=== PATIENT | female | born 1990 | race African-American/Black ===

== ENCOUNTER 2017-02-18 07:22 | Emergency (ER) | payer OTHER ==
[~2017-02-18] VITALS: Ht 162.6 cm; Wt 77.1 kg
[2017-02-18] MEDS ORDERED: IV NORMAL SALINE 1,000ML 1,000 ML IV SCH (07:49)
[2017-02-18 08:14] LABS: BASO # 0.1 x10^3/uL (0.0-0.2); BASO % 0 % (0-3); EOS # 0.1 x10^3/uL (0.0-0.7); EOS % 1 % (0-3); HEMATOCRIT 34.1 % (36.0-47.0); LYMPH # 2.8 x10^3/uL (1.0-4.8); LYMPH % 17 % (24-48); MEAN CORPUSCULAR HEMOGLOBIN 26 pg (25-35); MEAN CORPUSCULAR HGB CONC 32 g/dL (31-37); MEAN CORPUSCULAR VOLUME 80 fL (79-100); MONO # 1.3 x10^3/uL (0.0-1.1); MONO % 8 % (0-9); NEUT # 12.4 x10^3uL (1.8-7.7); NEUT % 75 % (31-73); PLATELET COUNT 371 x10^3/uL (140-400); RED BLOOD COUNT 4.27 x10^6/uL (3.50-5.40); RED CELL DISTRIBUTION WIDTH 20.5 % (11.5-14.5); WHITE BLOOD COUNT 16.6 x10^3/uL (4.0-11.0)
[2017-02-18 08:25] LABS: ALBUMIN 3.4 g/dL (3.4-5.0); ALBUMIN/GLOBULIN RATIO 0.9 (1.0-1.7); CALCIUM 8.7 mg/dL (8.5-10.1); CREATININE 0.7 mg/dL (0.6-1.0); GFR 121.5; POTASSIUM 3.3 mmol/L (3.5-5.1); TOTAL BILIRUBIN 0.1 mg/dL (0.2-1.0); TOTAL PROTEIN 7.2 g/dL (6.4-8.2)
[2017-02-18] MEDS ORDERED: ONDANSETRON PF 4 MG/2 ML VIAL. IV ONE (08:30)
[2017-02-18 08:52] LABS: % LYMPHS 17 % (24-48); % MONOS 13 % (0-10); % SEGS 70 % (35-66); PLT ESTIMATE ADEQUATE (ADEQUATE)
[2017-02-18 08:53] LABS: ANISOCYTOSIS SLIGHT; OVALOCYTES OCC
--- NOTE | 2017-02-18 08:58 | PHYS DOC ---
Past History Past Medical History: Other Past Surgical History: No Surgical History Smoking: Greater than 1 pack/day Alcohol Use: Occasionally Drug Use: None Adult General Chief Complaint Chief Complaint: NAUSEA/VOMITING/DIARRHEA HPI HPI Patient is a 26 year old F who presents with nausea/vomiting/diarrhea over the past 2-3 days. She also describes intermittent short-lived sharp generalized abdominal pain that seems to be associated with vomiting. She denies any other associated symptoms at this time. She denies any other exacerbating or relieving factors. Review of Systems Review of Systems Constitutional: Denies fever or chills [] Eyes: Denies change in visual acuity, redness, or eye pain [] HENT: Denies nasal congestion or sore throat [] Respiratory: Denies cough or shortness of breath [] Cardiovascular: No additional information not addressed in HPI [] GI: Negative except history of present illness : Denies dysuria or hematuria [] Musculoskeletal: Denies back pain or joint pain [] Integument: Denies rash or skin lesions [] Neurologic: Denies headache, focal weakness or sensory changes [] Endocrine: Denies polyuria or polydipsia [] All other systems were reviewed and found to be within normal limits, except as documented in this note. Family History Family History No pertinent family medical history was reported Current Medications Current Medications Current medications were reviewed Current Medications Medications (Trade) Dose Ordered Sig/Pedro Start Time Stop Time Status Last Admin Dose Admin Ondansetron HCl (Zofran) 4 mg 1X ONCE 02/18/17 08:30 02/18/17 08:31 DC 02/18/17 08:22 4 MG Sodium Chloride 1,000 ml @ 1,000 mls/hr Q1H 02/18/17 07:49 02/18/17 08:48 02/18/17 08:22 1,000 MLS/HR Allergies Allergies Allergies Coded Allergies Type Severity Reaction Last Updated Verified No Known Drug Allergies 02/18/17 No Physical Exam Physical Exam Constitutional: Well developed, well nourished, no acute distress, non-toxic appearance. [] HENT: Normocephalic, atraumatic, Eyes: EOMI, conjunctiva normal, no discharge. [] Neck: Normal range of motion, no tenderness, supple, no stridor. [] Cardiovascular:Heart rate regular rhythm, Lungs & Thorax: Bilateral breath sounds clear to auscultation [] Abdomen: Bowel sounds normal, soft, no masses, no pulsatile masses. [] Mild generalized discomfort noted Skin: Warm, dry, no erythema, no rash. [] Back: No tenderness, no CVA tenderness. [] Extremities: No tenderness, no cyanosis, no clubbing, ROM intact, no edema. [] Neurologic: Alert and oriented X 3, normal motor function, normal sensory function, no focal deficits noted. [] Psychologic: Affect normal, judgement normal, mood normal. [] Current Patient Data Vital Signs Vital Signs Date Time Temp Pulse Resp B/P (MAP) Pulse Ox O2 Delivery O2 Flow Rate FiO2 02/18/17 07:58 98.3 93 18 100 Room Air Lab Results Laboratory Tests Test 02/18/17 08:00 White Blood Count 16.6 x10^3/uL (4.0-11.0) H Red Blood Count 4.27 x10^6/uL (3.50-5.40) Hemoglobin 11.0 g/dL (12.0-15.5) L Hematocrit 34.1 % (36.0-47.0) L Mean Corpuscular Volume 80 fL (79-100) Mean Corpuscular Hemoglobin 26 pg (25-35) Mean Corpuscular Hemoglobin Concent 32 g/dL (31-37) Red Cell Distribution Width 20.5 % (11.5-14.5) H Platelet Count 371 x10^3/uL (140-400) Neutrophils (%) (Auto) 75 % (31-73) H Lymphocytes (%) (Auto) 17 % (24-48) L Monocytes (%) (Auto) 8 % (0-9) Eosinophils (%) (Auto) 1 % (0-3) Basophils (%) (Auto) 0 % (0-3) Neutrophils # (Auto) 12.4 x10^3uL (1.8-7.7) H Lymphocytes # (Auto) 2.8 x10^3/uL (1.0-4.8) Monocytes # (Auto) 1.3 x10^3/uL (0.0-1.1) H Eosinophils # (Auto) 0.1 x10^3/uL (0.0-0.7) Basophils # (Auto) 0.1 x10^3/uL (0.0-0.2) Platelet Estimate Pending Sodium Level 141 mmol/L (136-145) Potassium Level 3.3 mmol/L (3.5-5.1) L Chloride Level 104 mmol/L (98-107) Carbon Dioxide Level 27 mmol/L (21-32) Anion Gap 10 (6-14) Blood Urea Nitrogen 9 mg/dL (7-20) Creatinine 0.7 mg/dL (0.6-1.0) Estimated GFR (Cockcroft-Gault) 121.5 BUN/Creatinine Ratio 13 (6-20) Glucose Level 98 mg/dL (70-99) Calcium Level 8.7 mg/dL (8.5-10.1) Total Bilirubin 0.1 mg/dL (0.2-1.0) L Aspartate Amino Transferase (AST) 15 U/L (15-37) Alanine Aminotransferase (ALT) 19 U/L (14-59) Alkaline Phosphatase 75 U/L (46-116) Total Protein 7.2 g/dL (6.4-8.2) Albumin 3.4 g/dL (3.4-5.0) Albumin/Globulin Ratio 0.9 (1.0-1.7) L Lipase 144 U/L (73-393) No obvious signs of infection. WBC elevation is likely related to . She states that she has had hemorrhoids and is very confident that she is not having vaginal bleeding. She does have a history of receiving Rhogam during previous . More than 20 minutes was spent describing the risk of vaginal bleeding without Rhogam administration. She expressed understanding that without Rhogam in the presence of vaginal bleeding miscarriages likely as well as difficulty conceiving thereafter. Rhogam was declined EKG EKG [] Radiology/Procedures Radiology/Procedures US OB Impressions: IUP at 7wga Course & Med Decision Making Course & Med Decision Making Pertinent Labs and Imaging studies reviewed. (See chart for details) [] Dragon Disclaimer Dragon Disclaimer This electronic medical record was generated, in whole or in part, using a voice recognition dictation system. Departure Departure: Impression: Primary Impression: Gastroenteritis Additional Impression: Intrauterine Disposition: HOME, SELF-CARE Condition: STABLE Referrals: PCP,NO (PCP) Patient Instructions: ABCs of , Viral Gastroenteritis Additional Instructions: Katie was seen in the emergency department for nausea and vomiting. No emergency medical condition was found on history or physical exam. She was found to be in the first trimester of her . She also had symptoms of gastroenteritis versus nausea and vomiting with . She was given a prescription for nausea medication. She is advised follow-up with her primary care doctor/[facility] as soon as possible for further management. She was also advised to start taking a vitamin. Scripts Pyridoxine Hcl (PYRIDOXINE HCL) 25 Mg Tablet 25 MG PO TID Y for NAUSEA for 7 Days, #21 TAB Prov: KYLER SHIPLEY MD 02/18/17 Problem Qualifiers KYLER SHIPLEY MD Feb 18, 2017 08:58
[2017-02-18 09:06] LABS: BACTERIA,URINE 0 /HPF (0-FEW); BILIRUBIN,URINE NEG (NEG); CLARITY,URINE CLEAR; COLOR,URINE YELLOW; GLUCOSE,URINE NEG (NEG); NITRITE,URINE NEG (NEG); RBC,URINE RARE /HPF (0-2); SQUAMOUS EPITHELIAL CELL,UR OCC /LPF; UROBILINOGEN,URINE 0.2 mg/dL (0.2 mg/dL); WBC,URINE 0 /HPF (0-4)
--- NOTE | 2017-02-18 09:54 | RAD ---
Ultrasound pelvis Indication abdominal pain, vomiting. Beta-hCG 67,000. Technique: Grayscale, color Doppler and spectral waveform images of the pelvis obtained. Comparison: None Findings: The uterus measures 10.0 x 7.0 x 7.0 cm (longitudinal, AP, transverse). Single intrauterine gestation sac is noted with pole with crown to rump length measuring 0.91 cm corresponding to gestation age of 6 weeks 6 days. Cardiac activity is demonstrated at the rate of 141 bpm. The gestation sac mean diameter measures 2.4 cm corresponding to gestation age of 7 weeks 3 days. The left ovary measures 3.4 x 2.3 x 1.6 cm with a 1.1 cm simple cyst/follicle. The left ovary demonstrates evidence of blood flow. The right ovary measures 2.1 x 1.8 x 0.9 cm. Cervix within normal limits. Impression: Single viable intrauterine with estimated gestation age of 7 weeks 1 day and due date of 10/06/2017.
[2017-02-18] MEDS ORDERED: PYRI25TA3 PO (10:02)
[2017-02-18 10:05] VITALS: BP 124/61
== END 2017-02-18 10:09 | disposition home or self-care (01) ==
LOC: ER 07:22
DX: K52.9 Noninfective gastroenteritis and colitis, unspecified (principal); Z33.1 Pregnant state, incidental; F17.200 Nicotine dependence, unspecified, uncomplicated
CPT/HCPCS: 36415; 76801; 76817; 80053; 81001; 81025; 83690; 84702; 85007; 85025; 96361; 96374; 99285; J2405; J7030

== ENCOUNTER 2017-08-18 18:00 | Emergency (ER) | payer OTHER ==
[~2017-08-18 18:00] MED LIST: PYRI25TA3 PO
--- NOTE | 2017-08-18 21:25 | ED.ADGEN ---
Past History Past Medical History: Other Past Surgical History: No Surgical History Smoking: Greater than 1 pack/day Alcohol Use: Occasionally Drug Use: None Adult General Chief Complaint Chief Complaint ". ... I am having some cramping.. and pain.. I am about 32 ... this will be 5th.. I ve had four births. one set of twins.. one miscarry... not had any care...." [facility] HPI Patient is a 27 year old female who presents with above hx and complaints of abdomen cramping and estimated 32 weeks gravid. ( See Hand written chart - computer down.) Patient has had estimated 5 pregnancies. One was twins. She had 1 miscarriage. No history given of STDs. No history of trauma. No history of synovial contacts. No history immunosuppression. Review of Systems Review of Systems Constitutional: Denies fever or chills [] Eyes: Denies change in visual acuity, redness, or eye pain [] HENT: Denies nasal congestion or sore throat [] Respiratory: Denies cough or shortness of breath [] Cardiovascular: No additional information not addressed in HPI [] GI: Complaints of abdominal pain, nausea,. Denies vomiting, bloody stools or diarrhea [] Vaginal spotting : Denies dysuria or hematuria [] Musculoskeletal: Denies back pain or joint pain [] Integument: Denies rash or skin lesions [] Neurologic: Denies headache, focal weakness or sensory changes [] Endocrine: Denies polyuria or polydipsia [] All other systems were reviewed and found to be within normal limits, except as documented in this note. Family History Family History Non-contributory Current Medications Current Medications Current Medications Medications (Trade) Dose Ordered Sig/Pedro Start Time Stop Time Status Last Admin Dose Admin Ceftriaxone Sodium 1 gm/ Sodium Chloride 50 ml @ 100 mls/hr 1X ONCE 08/19/17 01:00 08/19/17 01:29 UNV Ceftriaxone Sodium (Rocephin) 1 gm ONCE ONCE 08/19/17 01:15 08/19/17 01:16 SC See nursing for home meds Allergies Allergies Allergies Coded Allergies Type Severity Reaction Last Updated Verified No Known Drug Allergies 02/18/17 No Physical Exam Physical Exam Constitutional: , moderately acute distress, non-toxic appearance. [] HENT: Normocephalic, atraumatic, bilateral external ears normal, oropharynx moist, no oral exudates, nose normal. [] Eyes: PERRLA, EOMI, conjunctiva normal, no discharge. [] Neck: Normal range of motion, no tenderness, supple, no stridor. [] Cardiovascular:Heart rate regular rhythm, no murmur [] Lungs & Thorax: Bilateral breath sounds equal apex with scattered wheezes . [] Abdomen: Bowel sounds normal, soft, no tenderness, no masses, no pulsatile masses. Vaginal exam shows discharged mild cervical motion tenderness. Small amount of spotting at Os Skin: Warm, dry, no erythema, no rash. [] Back: No tenderness, no CVA tenderness. [] Extremities: No tenderness, no cyanosis, no clubbing, ROM intact, no edema. [] No psoas or obturator. Neurologic: Alert and oriented X 3, normal motor function, normal sensory function, no focal deficits noted. [] Psychologic: Affect anxious judgement normal, mood normal. [] Current Patient Data Lab Results Laboratory Tests Test 08/18/17 18:45 White Blood Count 14.3 x10^3/uL (4.0-11.0) H Red Blood Count 3.70 x10^6/uL (3.50-5.40) Hemoglobin 8.7 g/dL (12.0-15.5) L Hematocrit 28.4 % (36.0-47.0) L Mean Corpuscular Volume 77 fL (79-100) L Mean Corpuscular Hemoglobin 24 pg (25-35) L Mean Corpuscular Hemoglobin Concent 31 g/dL (31-37) Red Cell Distribution Width 17.8 % (11.5-14.5) H Platelet Count 178 x10^3/uL (140-400) Neutrophils (%) (Auto) 73 % (31-73) Lymphocytes (%) (Auto) 18 % (24-48) L Monocytes (%) (Auto) 8 % (0-9) Eosinophils (%) (Auto) 1 % (0-3) Basophils (%) (Auto) 0 % (0-3) Neutrophils # (Auto) 10.5 x10^3uL (1.8-7.7) H Lymphocytes # (Auto) 2.5 x10^3/uL (1.0-4.8) Monocytes # (Auto) 1.1 x10^3/uL (0.0-1.1) Eosinophils # (Auto) 0.1 x10^3/uL (0.0-0.7) Basophils # (Auto) 0.0 x10^3/uL (0.0-0.2) Prothrombin Time < 9.3 SEC (9.4-11.4) L Prothrombin Time INR 0.9 (0.9-1.1) Maternal Serum HCG Beta Subunit 65978 mIU/mL (0-6) H Sodium Level 140 mmol/L (136-145) Potassium Level 3.7 mmol/L (3.5-5.1) Chloride Level 105 mmol/L (98-107) Carbon Dioxide Level 25 mmol/L (21-32) Anion Gap 10 (6-14) Blood Urea Nitrogen 2 mg/dL (7-20) L Creatinine 0.5 mg/dL (0.6-1.0) L Estimated GFR (Cockcroft-Gault) 177.8 BUN/Creatinine Ratio 4 (6-20) L Glucose Level 95 mg/dL (70-99) Calcium Level 9.0 mg/dL (8.5-10.1) Total Bilirubin 0.3 mg/dL (0.2-1.0) Aspartate Amino Transferase (AST) 34 U/L (15-37) Alanine Aminotransferase (ALT) 16 U/L (14-59) Alkaline Phosphatase 98 U/L (46-116) Total Protein 6.1 g/dL (6.4-8.2) L Albumin 2.1 g/dL (3.4-5.0) L Albumin/Globulin Ratio 0.5 (1.0-1.7) L Lipase 144 U/L (73-393) Microbiology 08/18/17 Wet Prep - Final, Complete Laboratory Tests Test 08/18/17 18:45 White Blood Count 14.3 x10^3/uL (4.0-11.0) H Red Blood Count 3.70 x10^6/uL (3.50-5.40) Hemoglobin 8.7 g/dL (12.0-15.5) L Hematocrit 28.4 % (36.0-47.0) L Mean Corpuscular Volume 77 fL (79-100) L Mean Corpuscular Hemoglobin 24 pg (25-35) L Mean Corpuscular Hemoglobin Concent 31 g/dL (31-37) Red Cell Distribution Width 17.8 % (11.5-14.5) H Platelet Count 178 x10^3/uL (140-400) Neutrophils (%) (Auto) 73 % (31-73) Lymphocytes (%) (Auto) 18 % (24-48) L Monocytes (%) (Auto) 8 % (0-9) Eosinophils (%) (Auto) 1 % (0-3) Basophils (%) (Auto) 0 % (0-3) Neutrophils # (Auto) 10.5 x10^3uL (1.8-7.7) H Lymphocytes # (Auto) 2.5 x10^3/uL (1.0-4.8) Monocytes # (Auto) 1.1 x10^3/uL (0.0-1.1) Eosinophils # (Auto) 0.1 x10^3/uL (0.0-0.7) Basophils # (Auto) 0.0 x10^3/uL (0.0-0.2) Prothrombin Time < 9.3 SEC (9.4-11.4) L Prothrombin Time INR 0.9 (0.9-1.1) Maternal Serum HCG Beta Subunit 41936 mIU/mL (0-6) H Sodium Level 140 mmol/L (136-145) Potassium Level 3.7 mmol/L (3.5-5.1) Chloride Level 105 mmol/L (98-107) Carbon Dioxide Level 25 mmol/L (21-32) Anion Gap 10 (6-14) Blood Urea Nitrogen 2 mg/dL (7-20) L Creatinine 0.5 mg/dL (0.6-1.0) L Estimated GFR (Cockcroft-Gault) 177.8 BUN/Creatinine Ratio 4 (6-20) L Glucose Level 95 mg/dL (70-99) Calcium Level 9.0 mg/dL (8.5-10.1) Total Bilirubin 0.3 mg/dL (0.2-1.0) Aspartate Amino Transferase (AST) 34 U/L (15-37) Alanine Aminotransferase (ALT) 16 U/L (14-59) Alkaline Phosphatase 98 U/L (46-116) Total Protein 6.1 g/dL (6.4-8.2) L Albumin 2.1 g/dL (3.4-5.0) L Albumin/Globulin Ratio 0.5 (1.0-1.7) L Lipase 144 U/L (73-393) Microbiology 08/18/17 Wet Prep - Final, Complete EKG EKG [] Radiology/Procedures Radiology/Procedures Ultrasound shows intrauterine estimated 32 weeks. heart rate at 149.[] Course & Med Decision Making Course & Med Decision Making Pertinent Labs and Imaging studies reviewed. (See chart for details). Pt. to follow-up cultures with [employer]. Patient continue pad counts. Patient take vitamins. Patient to stop smoking. Note patient was to receive Rhogram here in the emergency department but left at the time Dispense to the ER. [] Final Impression Final Impression 1. Abdomen Pain 2. Gravid-[]32 weeks 3. Leukocytosis 4. Anemia 5. Beta hCG= 31,395 6. Blood type A negative 7. Threaten 8. Tobacco Use Dragon Disclaimer Dragon Disclaimer This electronic medical record was generated, in whole or in part, using a voice recognition dictation system. EMILY CASTRO MD Aug 18, 2017 21:25
[2017-08-18 22:44] LABS: BASO % 0 % (0-3); EOS # 0.1 x10^3/uL (0.0-0.7); EOS % 1 % (0-3); HEMATOCRIT 28.4 % (36.0-47.0); HEMOGLOBIN 8.7 g/dL (12.0-15.5); LYMPH # 2.5 x10^3/uL (1.0-4.8); LYMPH % 18 % (24-48); MEAN CORPUSCULAR HEMOGLOBIN 24 pg (25-35); MEAN CORPUSCULAR HGB CONC 31 g/dL (31-37); MEAN CORPUSCULAR VOLUME 77 fL (79-100); MONO # 1.1 x10^3/uL (0.0-1.1); MONO % 8 % (0-9); NEUT # 10.5 x10^3uL (1.8-7.7); NEUT % 73 % (31-73); PLATELET COUNT 178 x10^3/uL (140-400); RED CELL DISTRIBUTION WIDTH 17.8 % (11.5-14.5); WHITE BLOOD COUNT 14.3 x10^3/uL (4.0-11.0)
[2017-08-18 22:51] LABS: ALBUMIN 2.1 g/dL (3.4-5.0); ALBUMIN/GLOBULIN RATIO 0.5 (1.0-1.7); CREATININE 0.5 mg/dL (0.6-1.0); GFR 177.8; POTASSIUM 3.7 mmol/L (3.5-5.1); TOTAL BILIRUBIN 0.3 mg/dL (0.2-1.0); TOTAL PROTEIN 6.1 g/dL (6.4-8.2)
--- NOTE | 2017-08-18 23:02 | RAD ---
Clinical Indication: No care. Low pelvic pain for 2 days. Technique: Study is dated August 18, 2017. No comparison study is available. Transabdominal imaging was performed. Findings: There is a single intrauterine gestation in cephalic presentation. The placenta is posterior and fundal in location without evidence of placental previa. Cervical region is not well evaluated. ALDEN measured 9.5 cm. This value is within normal limits. Biometrical data is as follows: BPD = 7.98 cm, with a corresponding gestational age of 32 weeks 0 days. HC = 28.33 cm, with a corresponding gestational age of 31 weeks 1 days. AC = 28.47 cm, with a corresponding gestational age of 32 weeks 3 days. FL = 6.34 cm, with a corresponding gestational age of 32 weeks 5 days. Ratio of head circumference to abdominal circumference is 1.0. Cephalic index is 83 percent. Overall, the estimated sonographic gestational age is 32 weeks 1 day for an estimated date of delivery of October 12, 2017. YINKA by LMP is October 06, 2017. Estimated weight is 1964 g, 37th percentile. survey was performed. A four chamber heart is identified with positive cardiac activity. The estimated heart rate is 149 beats per minute. There is a three-vessel cord with cord insertion visualized. stomach and urinary bladder are identified. Both kidneys are seen. Spine is grossly unremarkable. Limited intracranial evaluation is unremarkable. Maternal ovaries are not visualized. IMPRESSION: Single intrauterine gestation with estimated sonographic gestational age of 32 weeks 1 day and heart tones of 149 bpm. Electronically signed by: Romulo Coley MD (08/18/2017 10:58 PM) [facility]
[2017-08-19] MEDS ORDERED: CEPH-264 PO (01:05)
[2017-08-19] MEDS ORDERED: cefTRIAXone IV Push 1 GM VIAL. IVP ONE (01:15)
[2017-08-23 20:07] LABS: CHLAMYDIA PROBE Negative (Negative)
== END 2017-08-19 03:08 | disposition left against medical advice (07) ==
LOC: ER 18:00
DX: O20.0 Threatened abortion (principal); O99.113 Other diseases of the blood and blood-forming organs and certain disorders involving the immune mechanism complicating pregnancy, third trimester; D64.9 Anemia, unspecified; D72.829 Elevated white blood cell count, unspecified; O99.333 Smoking (tobacco) complicating pregnancy, third trimester; Z3A.32 32 weeks gestation of pregnancy
CPT/HCPCS: 36415; 76805; 80053; 83690; 84702; 85025; 85610; 86592; 86703; 86705; 86709; 86803; 86850; 86900; 86901; 87340; 87491; 87591; 99285; Q0111

== ENCOUNTER 2017-09-20 10:18 | Emergency (ER) | payer SELFPAY ==
[~2017-09-20] VITALS: Ht 170.2 cm; Wt 95.7 kg
[2017-09-20 10:18] VITALS: BP 153/96
[~2017-09-20 10:18] MED LIST changes: +CEPH-264 PO
--- NOTE | 2017-09-20 10:33 | PHYS DOC ---
Past History Past Medical History: Other Past Surgical History: No Surgical History Smoking: Greater than 1 pack/day Alcohol Use: Occasionally Drug Use: None Adult General Chief Complaint Chief Complaint: OB/UTERINE CONTRACTIONS [facility] HPI Patient is a 27-year-old female who presents with complaining of uterine contraction patient is at 36-38 weeks of gestation without care and complaining of discomfort feeling since last night and abdominal contractions since 5-6 AM today. She denies a sharp other or bloody show, nausea and vomiting, fever and chills. Patient drove to hospital and asked for help while she parked her car in parking lot. Review of Systems Review of Systems Constitutional: Denies fever or chills [] Eyes: Denies change in visual acuity, redness, or eye pain [] HENT: Denies nasal congestion or sore throat [] Respiratory: Denies cough or shortness of breath [] Cardiovascular: No additional information not addressed in HPI [] GI: Reports abdominal pain, denies nausea, vomiting, bloody stools or diarrhea [ ] : Denies dysuria or hematuria [] Musculoskeletal: Denies back pain or joint pain [] Integument: Denies rash or skin lesions [] Neurologic: Denies headache, focal weakness or sensory changes [] Endocrine: Denies polyuria or polydipsia [] All other systems were reviewed and found to be within normal limits, except as documented in this note. Allergies Allergies Allergies Coded Allergies Type Severity Reaction Last Updated Verified No Known Drug Allergies 02/18/17 No Physical Exam Physical Exam Constitutional: Well nourished, moderate distress, non-toxic appearance. [] HENT: Normocephalic, atraumatic Eyes: PERRLA, EOMI, conjunctiva normal, no discharge. [] Neck: Normal range of motion, no tenderness, supple, no stridor. [] Cardiovascular:Heart rate regular rhythm, no murmur [] Lungs & Thorax: Bilateral breath sounds clear to auscultation [] Abdomen: Bowel sounds normal, soft, no tenderness, gravid abdomen with contraction last for 1 minute and 5 minutes apart, heart rate 140s, vaginal exam showed high head station at -3 with 3-4 cm effacement without vaginal bleeding[] Skin: Warm, dry, no erythema, no rash. [] Back: No tenderness, no CVA tenderness. [] Extremities: No tenderness, no cyanosis, no clubbing, ROM intact, no edema. [] Neurologic: Alert and oriented X 3, normal motor function, normal sensory function, no focal deficits noted. [] Psychologic: Affect anxious EKG EKG [] Radiology/Procedures Radiology/Procedures [] Course & Med Decision Making Course & Med Decision Making Evaluation of patient in ER showed 27-year-old female patient 5 for presented with active labor to ER with 4-5 cm dilatation and station of head at -3. [facility] OB team was contacted and Rhonda SEISMOGRAPH CHIEF nurse accepted transfer at [facility] on behalf of on-call SEISMOGRAPH CHIEF. While patient was in ER for few minutes her condition getting more closer with 3 minutes apart. Dragon Disclaimer Dragon Disclaimer This electronic medical record was generated, in whole or in part, using a voice recognition dictation system. Departure Departure: Impression: Primary Impression: Active labor at term Disposition: 05 XFER OTHER ([facility] at 10:30) Condition: GUARDED Referrals: PCP,NO (PCP) Critical Care Time Critical care time was [40] minutes exclusive of procedures. BOY PAYNE MD Sep 20, 2017 10:33
== END 2017-09-20 10:35 | disposition short-term general hospital (02) ==
LOC: ER 10:18
DX: O75.9 Complication of labor and delivery, unspecified (principal); Z3A.38 38 weeks gestation of pregnancy; Z87.891 Personal history of nicotine dependence
CPT/HCPCS: 99285; 99291

== ENCOUNTER 2019-04-25 07:23 | Emergency (ER) | payer MEDICAID, OTHER ==
[~2019-04-25] VITALS: Ht 162.6 cm; Wt 77.2 kg
[2019-04-25 07:29] VITALS: BP 123/81
[2019-04-25] MEDS ORDERED: IV NORMAL SALINE 1,000ML 1,000 ML IV SCH (07:35)
[2019-04-25] MEDS ORDERED: ONDANSETRON PF 4 MG/2 ML VIAL. IVP ONE (07:45)
[2019-04-25] MEDS ORDERED: MORPHINE SULFATE 4 MG/ML DISP.SYRIN. IV/SQ PRN (07:45)
[2019-04-25 08:11] LABS: BASO % 0 % (0-3); EOS # 0.1 x10^3/uL (0.0-0.7); EOS % 1 % (0-3); HEMATOCRIT 36.3 % (36.0-47.0); HEMOGLOBIN 11.4 g/dL (12.0-15.5); LYMPH # 1.2 x10^3/uL (1.0-4.8); LYMPH % 11 % (24-48); MEAN CORPUSCULAR HEMOGLOBIN 25 pg (25-35); MEAN CORPUSCULAR HGB CONC 31 g/dL (31-37); MEAN CORPUSCULAR VOLUME 79 fL (79-100); MONO # 0.6 x10^3/uL (0.0-1.1); MONO % 5 % (0-9); NEUT # 9.5 x10^3uL (1.8-7.7); NEUT % 83 % (31-73); PLATELET COUNT 334 x10^3/uL (140-400); RED BLOOD COUNT 4.61 x10^6/uL (3.50-5.40); RED CELL DISTRIBUTION WIDTH 17.9 % (11.5-14.5); WHITE BLOOD COUNT 11.5 x10^3/uL (4.0-11.0)
[2019-04-25 08:17] LABS: CALCIUM 8.3 mg/dL (8.5-10.1); CREATININE 0.8 mg/dL (0.6-1.0); GFR 101.9; POTASSIUM 3.3 mmol/L (3.5-5.1)
[2019-04-25 08:24] LABS: ALBUMIN 3.4 g/dL (3.4-5.0); ALBUMIN/GLOBULIN RATIO 0.9 (1.0-1.7); TOTAL BILIRUBIN 0.2 mg/dL (0.2-1.0)
[2019-04-25] MEDS ORDERED: IOHEXOL 300 MG/ML 75 ML VIAL. IV ONE (08:45)
--- NOTE | 2019-04-25 09:08 | PHYS DOC ---
Past History Past Medical History: Other Additional Past Medical Histor: "ulcers" Past Surgical History: No Surgical History Smoking: Greater than 1 pack/day Alcohol Use: None Drug Use: None Adult General Chief Complaint Chief Complaint: NAUSEA/VOMITING/DIARRHEA HPI HPI Patient is a 29-year-old female who presents with complaint of abdominal pain with nausea, vomiting and diarrhea that started yesterday. Patient rates her pain to be an 8 out of 10. He describes pain as crampy. She does indicate the pain does radiate into her back. Patient denies any fever. She denies any chest pain or shortness of breath. She states that symptoms are worsened with eating. She states that nothing is improving her symptoms.[] Review of Systems Review of Systems Constitutional: Denies fever or chills [] Respiratory: Denies cough or shortness of breath [] Cardiovascular: No additional information not addressed in HPI [] GI: Complains of abdominal pain with vomiting and diarrhea [] Integument: Denies rash or skin lesions [] Neurologic: Denies headache, focal weakness or sensory changes [] All other systems were reviewed and found to be within normal limits, except as documented in this note. Current Medications Current Medications Current Medications Medications (Trade) Dose Ordered Sig/Pedro Start Time Stop Time Status Last Admin Dose Admin Iohexol (Omnipaque 300 Mg/ml) 75 ml 1X ONCE 04/25/19 08:45 04/25/19 08:46 DC 04/25/19 08:42 75 ML Morphine Sulfate (Morphine 4mg Syringe) 4 mg PRN Q15MIN PRN 04/25/19 07:45 04/26/19 07:44 04/25/19 07:51 4 MG Ondansetron HCl (Zofran) 4 mg 1X ONCE 04/25/19 07:45 04/25/19 07:46 DC 04/25/19 07:50 4 MG Sodium Chloride 1,000 ml @ 1,000 mls/hr Q1H 04/25/19 07:35 04/25/19 08:34 DC 04/25/19 07:50 1,000 MLS/HR Allergies Allergies Allergies Coded Allergies Type Severity Reaction Last Updated Verified No Known Drug Allergies 02/18/17 No Physical Exam Physical Exam Constitutional: Well developed, well nourished, no acute distress, non-toxic appearance. [] HENT: Normocephalic, atraumatic, bilateral external ears normal, oropharynx moist, no oral exudates, nose normal. [] Eyes: PERRLA, EOMI, conjunctiva normal, no discharge. [] Neck: Normal range of motion, no tenderness, supple. [] Cardiovascular: Regular rate and rhythm[] Lungs & Thorax: Bilateral breath sounds clear to auscultation [] Abdomen: Bowel sounds normal, soft, with diffuse tenderness. [] Skin: Warm, dry, no erythema, no rash. [] Extremities: No tenderness, no cyanosis, no clubbing, ROM intact, no edema. [] Neurologic: Alert and oriented X 3 no focal deficits noted. [] Current Patient Data Vital Signs Vital Signs Date Time Temp Pulse Resp B/P (MAP) Pulse Ox O2 Delivery O2 Flow Rate FiO2 04/25/19 08:37 95 100 04/25/19 07:51 16 04/25/19 07:29 97.6 123/81 (95) Room Air Lab Results Laboratory Tests Test 04/25/19 07:55 White Blood Count 11.5 x10^3/uL (4.0-11.0) H Red Blood Count 4.61 x10^6/uL (3.50-5.40) Hemoglobin 11.4 g/dL (12.0-15.5) L Hematocrit 36.3 % (36.0-47.0) Mean Corpuscular Volume 79 fL (79-100) Mean Corpuscular Hemoglobin 25 pg (25-35) Mean Corpuscular Hemoglobin Concent 31 g/dL (31-37) Red Cell Distribution Width 17.9 % (11.5-14.5) H Platelet Count 334 x10^3/uL (140-400) Neutrophils (%) (Auto) 83 % (31-73) H Lymphocytes (%) (Auto) 11 % (24-48) L Monocytes (%) (Auto) 5 % (0-9) Eosinophils (%) (Auto) 1 % (0-3) Basophils (%) (Auto) 0 % (0-3) Neutrophils # (Auto) 9.5 x10^3uL (1.8-7.7) H Lymphocytes # (Auto) 1.2 x10^3/uL (1.0-4.8) Monocytes # (Auto) 0.6 x10^3/uL (0.0-1.1) Eosinophils # (Auto) 0.1 x10^3/uL (0.0-0.7) Basophils # (Auto) 0.0 x10^3/uL (0.0-0.2) Sodium Level 142 mmol/L (136-145) Potassium Level 3.3 mmol/L (3.5-5.1) L Chloride Level 104 mmol/L (98-107) Carbon Dioxide Level 25 mmol/L (21-32) Anion Gap 13 (6-14) Blood Urea Nitrogen 11 mg/dL (7-20) Creatinine 0.8 mg/dL (0.6-1.0) Estimated GFR (Cockcroft-Gault) 101.9 BUN/Creatinine Ratio 14 (6-20) Glucose Level 124 mg/dL (70-99) H Calcium Level 8.3 mg/dL (8.5-10.1) L Total Bilirubin 0.2 mg/dL (0.2-1.0) Aspartate Amino Transferase (AST) 16 U/L (15-37) Alanine Aminotransferase (ALT) 21 U/L (14-59) Alkaline Phosphatase 79 U/L (46-116) Total Protein 7.0 g/dL (6.4-8.2) Albumin 3.4 g/dL (3.4-5.0) Albumin/Globulin Ratio 0.9 (1.0-1.7) L Lipase 117 U/L (73-393) EKG EKG [] Radiology/Procedures Radiology/Procedures [] Impressions: PROCEDURE: CT ABD PELV W/ IV CONTRST ONLY CT ABD PELV W/ IV CONTRST ONLY History: Epigastric abdominal pain, history of stomach ulcers Comparison: 03/10/2014 Technique: After administration of intravenous contrast, helical CT of the abdomen and pelvis was performed from the lung bases through the ischial tuberosities. Coronal and sagittal reconstructions were obtained. 75 mL of Omnipaque 300 were used. One or more of the following dose reduction techniques were utilized: Automated exposure control (AEC), Adjustment of mA and/or kV according to patient size, Use of iterative reconstruction technique such as ASiR, CT scan done according to ALARA and image gently/image wisely Abdomen Findings: The visualized lung bases are clear. The liver, gallbladder, pancreas, spleen, and bilateral adrenal glands are normal. Symmetric renal enhancement. There is no focal renal mass. There is no hydronephrosis. The visualized loops of small bowel are normal. The visualized loops of large bowel are normal. There is no evidence of bowel obstruction. Appendix is normal. There is no free fluid. There is no mesenteric or retroperitoneal adenopathy. The abdominal aorta is normal in caliber. Pelvis Findings: Urinary bladder is normal. IUD in the lower uterus. There is no pelvic or inguinal adenopathy. There is no acute bony abnormality. IMPRESSION: No acute findings. Electronically signed by: Ivon Silva MD (04/25/2019 9:12 AM) [id number] DICTATED AND SIGNED BY: IVON SILVA MD DATE: 04/25/19911 CC: JAMES TOMLIN Jr. DO; PCP,NO ~ Course & Med Decision Making Course & Med Decision Making Pertinent Labs and Imaging studies reviewed. (See chart for details) [] Dragon Disclaimer Dragon Disclaimer This electronic medical record was generated, in whole or in part, using a voice recognition dictation system. Departure Departure: Impression: Primary Impression: Gastroenteritis Disposition: 01 HOME, SELF-CARE Condition: STABLE Referrals: PCP,NO (PCP) Patient Instructions: Viral Gastroenteritis Scripts Ondansetron (ONDANSETRON ODT) 4 Mg Tab.rapdis 1 TAB PO PRN Q6-8HRS PRN for NAUSEA, #12 TAB Prov: JAMES TOMLIN Jr. DO 04/25/19 Diphenoxylate Hcl/Atropine (LOMOTIL TABLET) 1 Each Tablet 1 TAB PO TID PRN for DIARRHEA, #15 TAB Prov: JAMES TOMLIN Jr. DO 04/25/19 JAMES TOMLIN Jr. DO Apr 25, 2019 09:08
--- NOTE | 2019-04-25 09:15 | RAD ---
CT ABD PELV W/ IV CONTRST ONLY History: Epigastric abdominal pain, history of stomach ulcers Comparison: 03/10/2014 Technique: After administration of intravenous contrast, helical CT of the abdomen and pelvis was performed from the lung bases through the ischial tuberosities. Coronal and sagittal reconstructions were obtained. 75 mL of Omnipaque 300 were used. One or more of the following dose reduction techniques were utilized: Automated exposure control (AEC), Adjustment of mA and/or kV according to patient size, Use of iterative reconstruction technique such as ASiR, CT scan done according to ALARA and image gently/image wisely Abdomen Findings: The visualized lung bases are clear. The liver, gallbladder, pancreas, spleen, and bilateral adrenal glands are normal. Symmetric renal enhancement. There is no focal renal mass. There is no hydronephrosis. The visualized loops of small bowel are normal. The visualized loops of large bowel are normal. There is no evidence of bowel obstruction. Appendix is normal. There is no free fluid. There is no mesenteric or retroperitoneal adenopathy. The abdominal aorta is normal in caliber. Pelvis Findings: Urinary bladder is normal. IUD in the lower uterus. There is no pelvic or inguinal adenopathy. There is no acute bony abnormality. IMPRESSION: No acute findings. Electronically signed by: Biju Harrison MD (04/25/2019 9:12 AM) [id number]
[2019-04-25] MEDS ORDERED: ONDA4TAB12 PO (09:20)
[2019-04-25] MEDS ORDERED: DIPH1TAB PO (09:20)
== END 2019-04-25 10:13 | disposition home or self-care (01) ==
LOC: ER 07:23
DX: K52.9 Noninfective gastroenteritis and colitis, unspecified (principal); F17.200 Nicotine dependence, unspecified, uncomplicated
CPT/HCPCS: 36415; 74177; 80053; 83690; 85025; 96361; 96374; 96375; J2270; J2405; Q9967; 99285-25; J7030

== ENCOUNTER 2020-01-07 17:47 | Emergency (ER) | payer MEDICAID ==
[~2020-01-07 17:47] MED LIST changes: +DIPH1TAB PO; +ONDA4TAB12 PO; -PYRI25TA3 PO; +PYRI50TA6 PO
== END 2020-01-07 18:45 | disposition left against medical advice (07) ==
LOC: ER 17:47
DX: M79.629 Pain in unspecified upper arm (principal); Z53.21 Procedure and treatment not carried out due to patient leaving prior to being seen by health care provider

== ENCOUNTER 2021-02-05 17:44 | Emergency (ER) | payer MEDICAID ==
[~2021-02-05] VITALS: Ht 162.6 cm; Wt 89.0 kg
--- NOTE | 2021-02-05 18:22 | PHYS DOC ---
Past History Past Medical History: Other Additional Past Medical Histor: "ulcers" (FRANCI VASQUEZ [employer]) Past Surgical History: Other Additional Past Surgical Histo: Rt shoulder repair (FRANCI VASQUEZ [employer]) Smoking: Greater than 1 pack/day Alcohol Use: None Drug Use: None (FRANCI VASQUEZ [employer]) Adult General Chief Complaint Chief Complaint: GENERALIZED BODY ACHES [facility] HPI Patient is a 30-year-old female patient presented to the ED today complaining of body aches, chills, cough and nasal congestion, symptoms began 3 days ago. Patient states her children as well as boyfriend have similar symptoms though they are getting all the symptoms. Denies any shortness of breath (FRANCI VASQUEZ [employer]) Review of Systems Review of Systems Constitutional: Reports chills Eyes: Denies change in visual acuity, redness, or eye pain [] HENT: Reports nasal congestion Respiratory: Reports cough, denies shortness of breath [] Cardiovascular: No additional information not addressed in HPI [] GI: Denies abdominal pain, nausea, vomiting, bloody stools or diarrhea [] : Denies dysuria or hematuria [] Musculoskeletal: Denies back pain or joint pain [] Integument: Denies rash or skin lesions [] Neurologic: Denies headache, focal weakness or sensory changes [] All other systems were reviewed and found to be within normal limits, except as documented in this note. (FRANCI VASQUEZ [employer]) Allergies Allergies Allergies Coded Allergies Type Severity Reaction Last Updated Verified No Known Drug Allergies 02/18/17 No (FRANCI VASQUEZ [employer]) Physical Exam Physical Exam Constitutional: Well developed, well nourished, no acute distress, non-toxic appearance. [] HENT: Normocephalic, atraumatic, bilateral external ears normal, oropharynx mo ist, no oral exudates, patient is congested Eyes: PERRLA, EOMI, conjunctiva normal, no discharge. [] Neck: Normal range of motion, no tenderness, supple, no stridor. [] Cardiovascular:Heart rate regular rhythm, no murmur [] Lungs & Thorax: Bilateral breath sounds clear to auscultation [] Abdomen: Bowel sounds normal, soft, no tenderness, no masses, no pulsatile masses. [] Skin: Warm, dry, no erythema, no rash. [] Back: No tenderness, no CVA tenderness. [] Extremities: No tenderness, no cyanosis, no clubbing, ROM intact, no edema. [] Neurologic: Alert and oriented X 3, normal motor function, normal sensory function, no focal deficits noted. [] Psychologic: Affect normal, judgement normal, mood normal. [] (FRANCI VASQUEZ APRN) Current Patient Data Vital Signs Vital Signs Date Time Temp Pulse Resp B/P (MAP) Pulse Ox O2 Delivery O2 Flow Rate FiO2 02/05/21 17:55 98.5 75 18 146/88 (107) 99 Room Air (FRANCI VASQUEZ APRN) EKG EKG [] (FRANCI VASQUEZ APRN) Radiology/Procedures Radiology/Procedures []PROCEDURE: CHEST AP ONLY XR CHEST 1V History: Cough. Comparison: None. Technique: AP radiograph of the chest. Findings: The lungs are adequately and symmetrically inflated. No airspace consolidation, pleural effusion or pneumothorax. The cardiomediastinal silhouette and pulmonary vasculature are within normal limits. No acute osseous abnormality. Soft tissues are unremarkable. Impression: 1. No acute cardiopulmonary process. Electronically signed by: Rito Alves MD (02/05/2021 7:04 PM) [facility] DICTATED AND SIGNED BY: RITO ALVES MD DATE: 02/05/211901 CC: FRANCI VASQUEZ APRN; PCP,NO ~MTH0 0 (FRANCI VASQUEZ APRN) Heart Score C/O Chest Pain: N/A Risk Factors: Risk Factors: DM, Current or recent (<one month) smoker, HTN, HLP, family history of CAD, obesity. Risk Scores: Risk Factors: DM, Current or recent (<one month) smoker, HTN, HLP, family history of CAD, obesity. (FRANCI VASQUEZ APRN) Course & Med Decision Making Course & Med Decision Making Pertinent Labs and Imaging studies reviewed. (See chart for details) This is a 30-year-old female patient presented to the ED today complaining of cough symptoms began symptoms began 3 days ago, patient is afebrile in the ED. Chest x-ray interpreted by radiologist is negative, negative rapid influenza A&B. Pending Covid PCR discharge home, results of supportive care measures (FRANCI VASQUEZ APRN) Course & Med Decision Making Did not see or evaluate patient. Did not discuss patient with COLLECTOR. Agree with COLLECTOR's work-up and disposition per note. (SAAD TRAMMELL MD) Dragon Disclaimer Dragon Disclaimer This electronic medical record was generated, in whole or in part, using a voice recognition dictation system. (FRANCI VASQUEZ APRN) Departure Departure: Impression: Primary Impression: Cough Additional Impressions: URI (upper respiratory infection) Person under investigation for COVID-19 Disposition: HOME / SELF CARE / HOMELESS Condition: STABLE Referrals: PCP,NO (PCP) follow up with your doctor in one week Patient Instructions: Cough, Adult, [id number], Upper Respiratory Infection, Adult, [id number], Viral Infections Additional Instructions: You were tested for COVID-19, your results are pending. We will call you when they are available. Your chest x-ray is negative for any acute findings, you are negative for influenza A&B. We encourage you to rest, push fluids, fever. Quarantine yourself until you get covid results from us. Take Tylenol or Motrin for pain or fever. Problem Qualifiers Additional Impressions: URI (upper respiratory infection) URI type: unspecified URI Qualified Codes: J06.9 - Acute upper respiratory infection, unspecified FRANCI VASQUEZ APRN Feb 05, 2021 18:22 SAAD TRAMMELL MD Feb 05, 2021 20:33
--- NOTE | 2021-02-05 19:07 | RAD ---
XR CHEST 1V History: Cough. Comparison: None. Technique: AP radiograph of the chest. Findings: The lungs are adequately and symmetrically inflated. No airspace consolidation, pleural effusion or p neumothorax. The cardiomediastinal silhouette and pulmonary vasculature are within normal limits. No acute osseous abnormality. Soft tissues are unremarkable. Impression: 1. No acute cardiopulmonary process. Electronically signed by: Rito Sheehan MD (02/05/2021 7:04 PM) [facility]
[2021-02-05 19:15] LABS: INFLUENZA A PATIENT NEGATIVE (NEGATIVE); INFLUENZA B PATIENT NEGATIVE (NEGATIVE)
[2021-02-05 19:50] VITALS: BP 141/95
== END 2021-02-05 19:52 | disposition home or self-care (01) ==
LOC: ER 17:44
DX: J06.9 Acute upper respiratory infection, unspecified (principal); F17.200 Nicotine dependence, unspecified, uncomplicated; Z20.822 Contact with and (suspected) exposure to COVID-19
CPT/HCPCS: 71045; 87804; 99284; C9803; U0003

== ENCOUNTER 2021-02-17 22:38 | Emergency (ER) | payer MEDICAID ==
[~2021-02-17] VITALS: Ht 162.6 cm; Wt 86.8 kg
[2021-02-18 01:57] LABS: BASO % 0 % (0-3); EOS # 0.1 x10^3/uL (0.0-0.7); EOS % 1 % (0-3); HEMATOCRIT 35.3 % (36.0-47.0); HEMOGLOBIN 11.1 g/dL (12.0-15.5); LYMPH # 2.5 x10^3/uL (1.0-4.8); LYMPH % 19 % (24-48); MEAN CORPUSCULAR HEMOGLOBIN 25 pg (25-35); MEAN CORPUSCULAR HGB CONC 31 g/dL (31-37); MEAN CORPUSCULAR VOLUME 80 fL (79-100); MONO % 8 % (0-9); NEUT # 9.6 x10^3uL (1.8-7.7); NEUT % 73 % (31-73); PLATELET COUNT 282 x10^3/uL (140-400); RED CELL DISTRIBUTION WIDTH 20.1 % (11.5-14.5); WHITE BLOOD COUNT 13.2 x10^3/uL (4.0-11.0)
[2021-02-18 01:59] LABS: CALCIUM 8.8 mg/dL (8.5-10.1); CREATININE 0.8 mg/dL (0.6-1.0); GFR 101.2; POTASSIUM 3.4 mmol/L (3.5-5.1)
[2021-02-18 02:04] LABS: TOTAL BILIRUBIN 0.3 mg/dL (0.2-1.0); TOTAL PROTEIN 8.2 g/dL (6.4-8.2)
[2021-02-18 02:39] LABS: ANISOCYTOSIS MOD; PLT ESTIMATE ADEQUATE (ADEQUATE)
--- NOTE | 2021-02-18 02:40 | PHYS DOC ---
Past History Past Medical History: Ovarian Cyst, Other Additional Past Medical Histor: anemia (EMILY CASTRO MD) Past Surgical History: Other Additional Past Surgical Histo: right shoulder (EMILY CASTRO MD) Smoking: Greater than 1 pack/day Alcohol Use: None Drug Use: None (EMILY CASTRO MD) General Adult EDM: Chief Complaint: ABDOMINAL PAIN HPI: HPI: ".,. I have been having abdomen pain off and on.. for a week or so... It constant tonight.. here on the right.. I ve had ovarian cysts before... It is worse after eating chicken tonight.. " Patient is a 30 year old femalew who presents with above hx and abdomen pain. Pain is localized in right lower quadrant. Patient states eating makes pain worse. Movement makes pain worse. Does have rebound to right lower quadrant. Pain is similar to prior episodes of ovarian cyst. Patient denies any pelvic discharge. Patient denies any trauma. Patient denies any recent travel. Patient denies any intake of bad food. Patient did not got flu vaccination. Patient did not get COVID vaccination. Has reported normal stools today. One loose stool yesterday. Patient has history of previous ovarian cyst. Patient uses IUD for control. (EMILY CASTRO MD) Review of Systems: Review of Systems: Constitutional: Denies fever or chills Eyes: Denies change in visual acuity HENT: Denies nasal congestion or sore throat Respiratory: Denies cough or shortness of breath Cardiovascular: Denies chest pain or edema GI: Complains of right lower quadrant abdominal pain, nausea,. Denies vomiting, bloody stools or diarrhea : Denies dysuria Musculoskeletal: Denies back pain or joint pain Integument: Denies rash Neurologic: Denies headache, focal weakness or sensory changes Endocrine: Denies polyuria or polydipsia Lymphatic: Denies swollen glands Psychiatric: Denies depression or anxiety (EMILY CASTRO MD) Family History: Family History: Noncontributory presentation (EMILY CASTRO MD) Current Medications: Current Meds: See nursing for home meds (EMILY CASTRO MD) Allergies: Allergies: Allergies Coded Allergies Type Severity Reaction Last Updated Verified No Known Drug Allergies 02/18/17 No (EMILY CASTRO MD) Physical Exam: PE: Constitutional: Moderate acute distress, non-toxic appearance. [] HENT: Normocephalic, atraumatic, bilateral external ears normal, oropharynx moist, no oral exudates, nose normal. [] Eyes: PERRLA, EOMI, conjunctiva normal, no discharge. [] Neck: Normal range of motion, no tenderness, supple, no stridor. [] Cardiovascular:Heart rate regular rhythm, no murmur [] Lungs & Thorax: Bilateral breath sounds equal apex with scattered wheezes on auscultation [] Abdomen: Bowel sounds decreased, soft, rebound to right lower quadrant tenderness, no masses, no pulsatile masses. [] Skin: Warm, dry, no erythema, no rash. [] Back: No tenderness, no CVA tenderness. [] Extremities: No tenderness, no cyanosis, no clubbing, ROM intact, no edema. No psoas sign. Neurologic: Alert and oriented X 3, normal motor function, normal sensory function, no focal deficits noted. [] Psychologic: Affect anxious, judgement normal, mood normal. [] (EMILY CASTRO MD) Current Patient Data: Labs: Laboratory Tests Test 02/18/21 00:50 White Blood Count 13.2 x10^3/uL (4.0-11.0) H Red Blood Count 4.40 x10^6/uL (3.50-5.40) Hemoglobin 11.1 g/dL (12.0-15.5) L Hematocrit 35.3 % (36.0-47.0) L Mean Corpuscular Volume 80 fL (79-100) Mean Corpuscular Hemoglobin 25 pg (25-35) Mean Corpuscular Hemoglobin Concent 31 g/dL (31-37) Red Cell Distribution Width 20.1 % (11.5-14.5) H Platelet Count 282 x10^3/uL (140-400) Neutrophils (%) (Auto) 73 % (31-73) Lymphocytes (%) (Auto) 19 % (24-48) L Monocytes (%) (Auto) 8 % (0-9) Eosinophils (%) (Auto) 1 % (0-3) Basophils (%) (Auto) 0 % (0-3) Neutrophils # (Auto) 9.6 x10^3uL (1.8-7.7) H Lymphocytes # (Auto) 2.5 x10^3/uL (1.0-4.8) Monocytes # (Auto) 1.0 x10^3/uL (0.0-1.1) Eosinophils # (Auto) 0.1 x10^3/uL (0.0-0.7) Basophils # (Auto) 0.0 x10^3/uL (0.0-0.2) Platelet Estimate Pending Sodium Level 140 mmol/L (136-145) Potassium Level 3.4 mmol/L (3.5-5.1) L Chloride Level 104 mmol/L (98-107) Carbon Dioxide Level 25 mmol/L (21-32) Anion Gap 11 (6-14) Blood Urea Nitrogen 12 mg/dL (7-20) Creatinine 0.8 mg/dL (0.6-1.0) Estimated GFR (Cockcroft-Gault) 101.2 BUN/Creatinine Ratio 15 (6-20) Glucose Level 88 mg/dL (70-99) Calcium Level 8.8 mg/dL (8.5-10.1) Total Bilirubin 0.3 mg/dL (0.2-1.0) Aspartate Amino Transferase (AST) 23 U/L (15-37) Alanine Aminotransferase (ALT) 21 U/L (14-59) Alkaline Phosphatase 63 U/L (46-116) Total Protein 8.2 g/dL (6.4-8.2) Albumin 4.0 g/dL (3.4-5.0) Albumin/Globulin Ratio 1.0 (1.0-1.7) Vital Signs: Vital Signs Date Time Temp Pulse Resp B/P (MAP) Pulse Ox O2 Delivery O2 Flow Rate FiO2 02/18/21 00:34 98.8 81 18 124/77 (93) 98 Room Air (EMILY CASTRO MD) EKG: EKG: [] (EMILY CASTRO MD) Radiology/Procedures: Radiology/Procedures: [address] [address] IMAGING REPORT Signed PATIENT: KARLIE HARKINS ACCOUNT: [id number] : 1990 LOCATION: ER AGE: 30 SEX: F EXAM STATUS: REG ER ORD. PHYSICIAN: EMILY CASTRO MD REASON: Right sided abdomen pain, hematuria PROCEDURE: ACUTE ABDOMEN SERIES XR ABDOMEN COMP ACUTE History: Reason: Right sided abdomen pain, hematuria / Spl. Instructions: / History: Technique: Upright and supine views the abdomen. Comparison: None. Findings: No consolidation or pleural effusion. No pneumothorax. Normal heart size. No pneumoperitoneum. Mild small bowel gas. Air and stool throughout the colon. IUD projecting over the pelvis. Impression: 1. Nonobstructed bowel gas pattern. Electronically signed by: Armaan Barron DO (02/18/2021 6:21 AM) [facility] DICTATED AND SIGNED BY: ARMAAN BARRON DO DATE: 02/18/21619 CC: BRITTON NERI DO; EMILY CASTRO MD; PCP,NO ~MTH0 0 [][place] [address] IMAGING REPORT Signed PATIENT: KARLIE HARKINS ACCOUNT: [id number] : 1990 LOCATION: ER AGE: 30 SEX: F EXAM STATUS: REG ER ORD. PHYSICIAN: EMILY CASTRO MD REASON: Rt. lower abd. pain., hematuria PROCEDURE: CT ABDOMEN PELVIS WO CONTRAST CT ABDOMEN+PELVIS WO History: Reason: Rt. lower abd. pain., hematuria / Spl. Instructions: / History: Technique: Noncontrast examination of the abdomen and pelvis. Coronal and sagittal reconstructions were performed. Exposure: One or more of the following individualized dose reduction techniques were utilized for this examination: 1. Automated exposure control 2. Adjustment of the mA and/or kV according to patient size 3. Use of iterative reconstruction technique. Comparison: April 25, 2019 Findings: Lower chest: No consolidation or pleural effusion. Small hiatal hernia. Abdomen and pelvis: The liver, spleen, adrenal glands, pancreas and gallbladder are unremarkable. No renal calculus. No hydronephrosis. Decompressed urinary bladder. Abnormal positioning of the IUD within the lower uterine segment. Normal appendix. No evidence of bowel obstruction. No pathologic lymph adenopathy. No ascites. Bones: No pathologic osseous lesions. Impression: 1. No acute abdominal or pelvic pathology. No obstructing urolithiasis. 2. Abnormal positioning of the IUD within the lower uterine segment, unchanged. Electronically signed by: Armaan Barron DO (02/18/2021 6:20 AM) [facility] DICTATED AND SIGNED BY: ARMAAN BARRON DO DATE: 02/18/21614 CC: BRITTON NERI DO; EMILY CASTRO MD; PCP,NO ~MTH0 0 (EMILY CASTRO MD) Impressions: CT ABDOMEN+PELVIS WO History: Reason: Rt. lower abd. pain., hematuria / Spl. Instructions: / History: Technique: Noncontrast examination of the abdomen and pelvis. Coronal and sagittal reconstructions were performed. Exposure: One or more of the following individualized dose reduction techniques were utilized for this examination: 1. Automated exposure control 2. Adjustment of the mA and/or kV according to patient size 3. Use of iterative reconstruction technique. Comparison: April 25, 2019 Findings: Lower chest: No consolidation or pleural effusion. Small hiatal hernia. Abdomen and pelvis: The liver, spleen, adrenal glands, pancreas and gallbladder are unremarkable. No renal calculus. No hydronephrosis. Decompressed urinary bladder. Abnormal positioning of the IUD within the lower uterine segment. Normal appendix. No evidence of bowel obstruction. No pathologic lymphadenopathy. No ascites. Bones: No pathologic osseous lesions. Impression: 1. No acute abdominal or pelvic pathology. No obstructing urolithiasis. 2. Abnormal positioning of the IUD within the lower uterine segment, unchanged. Electronically signed by: Armaan Barron DO (02/18/2021 6:20 AM) [facility] DICTATED AND SIGNED BY: ARMAAN BARRON DO DATE: 02/18/21614 CC: BRITTON NERI DO; EMILY CASTRO MD; PCP,NO ~MTH0 0 CT scan of the abdomen and pelvis with contrast 02/18/2021 CLINICAL HISTORY: Right lower quadrant abdominal pain. TECHNIQUE: After the oral administration contrast and the intravenous administration of 75 cc of Omnipaque 300, contiguous, 5 mm axial sections were obtained through the abdomen and pelvis. One or more of the following individualized dose reduction techniques were utilized for this study: 1. Automated exposure control. 2. Adjustment of the mA and/or kV according to patient size. 3. Use of iterative reconstruction technique. FINDINGS: Comparison is made to unenhanced CT scan abdomen and pelvis performed earlier the same day. Images through the lung bases demonstrate minimal dependent subsegmental atelectasis bilaterally. The liver, spleen, pancreas, adrenal glands and kidneys are within normal limits. The abdominal aorta tapers normally. The gallbladder is slightly contracted. No free fluid or free air is within abdomen. There is no evidence of bowel obstruction. Air and stool are seen throughout the colon. The appendix is well-visualized and is within normal limits. Images through the pelvis demonstrate the urinary bladder distended with urine. An IUD is again seen which appears to be malpositioned with the cervical canal. Calcifications are seen within the pelvis consistent with phleboliths. No free fluid is seen. The osseous structures are unchanged. IMPRESSION: No acute abnormality is seen. Electronically signed by: Cristopher De Leon MD (02/18/2021 8:28 AM) [id number] DICTATED AND SIGNED BY: CRISTOPHER DE LEON MD DATE: 02/18/21822 CC: BRITTON NERI DO; EMILY CASTRO MD; PCP,NO ~MTH0 0 (BRITTON NERI DO) Heart Score: C/O Chest Pain: N/A Risk Factors: Risk Factors: DM, Current or recent (<one month) smoker, HTN, HLP, family history of CAD, obesity. Risk Scores: Score 0 - 3: 2.5% MACE over next 6 weeks - Discharge Home Score 4 - 6: 20.3% MACE over next 6 weeks - Admit for Clinical Observation Score 7 - 10: 72.7% MACE over next 6 weeks - Early Invasive Strategies (EMILY CASTRO MD) C/O Chest Pain: N/A (BRITTON NERI DO) Course & Med Decision Making: Course & Med Decision Making Pertinent Labs and Imaging studies reviewed. (See chart for details) Endorsed to Dr. Neri at shift change. CT with contrast pending. Impression: 1. Abdomen Pain 2. Drug screen positive for marijuana and methamphetamine [] (EMILY CASTRO MD) Course & Med Decision Making The patient is positive for COVID-19. The CT of the abdomen pelvis is negative for acute findings. Patient does have abnormal positioning of her IUD. See official read for details. Patient is positive for methamphetamines and marijuana. She is stable for discharge at this time. (BRITTON NERI DO) Dragon Disclaimer: Dragon Disclaimer: This electronic medical record was generated, in whole or in part, using a voice recognition dictation system. (EMILY CASTRO MD) Departure Departure: Impression: Primary Impression: Abdominal pain Additional Impressions: COVID-19 Malpositioned IUD Disposition: HOME / SELF CARE / HOMELESS Condition: STABLE Referrals: PCP,NO (PCP) Patient Instructions: Abdominal Pain, Women Dragon Disclaimer This chart was dictated in whole or in part using Voice Recognition software in a busy, high-work load, and often noisy Emergency Department environment. It may contain unintended and wholly unrecognized errors or omissions. (EMILY CASTRO MD) EMILY CASTRO MD Feb 18, 2021 02:40 BRITTON NERI DO Feb 18, 2021 08:22
[2021-02-18 02:41] LABS: OVALOCYTES OCC
[2021-02-18 03:43] LABS: BARBITURATES NEG (NEG); BENZODIAZEPINES NEG (NEG); CANNABINOIDS POS (NEG); COCAINE NEG (NEG); METHADONE NEG (NEG); OPIATES NEG (NEG); PHENCYCLIDINE NEG (NEG)
[2021-02-18 03:45] LABS: AMPHETAMINE/METHAMPHETAMINE POS (NEG)
[2021-02-18] MEDS ORDERED: FAMOTIDINE 20 MG/2 ML VIAL IVP ONE (03:45)
[2021-02-18] MEDS ORDERED: IV RINGERS SOLUTION,LACTATED 1,000 ML IV ONE (03:45)
[2021-02-18] MEDS ORDERED: ONDANSETRON PF 4 MG/2 ML VIAL. IVP ONE (03:45)
[2021-02-18 04:12] LABS: U PREG PATIENT NEGATIVE (NEG)
[2021-02-18 04:13] LABS: BILIRUBIN,URINE NEG (NEG); CLARITY,URINE CLOUDY; COLOR,URINE YELLOW; GLUCOSE,URINE NEG (NEG); NITRITE,URINE NEG (NEG); UROBILINOGEN,URINE 0.2 mg/dL (0.2 mg/dL)
[2021-02-18 04:14] LABS: BACTERIA,URINE MOD /HPF (0-FEW); SQUAMOUS EPITHELIAL CELL,UR MANY /LPF
--- NOTE | 2021-02-18 06:22 | RAD ---
CT ABDOMEN+PELVIS WO History: Reason: Rt. lower abd. pain., hematuria / Spl. Instructions: / History: Technique: Noncontrast examination of the abdomen and pelvis. Coronal and sagittal reconstructions we re performed. Exposure: One or more of the following individualized dose reduction techniques were utilized for thi s examination: 1. Automated exposure control 2. Adjustment of the mA and/or kV according to patient size 3. Use of iterative reconstruction technique. Comparison: April 25, 2019 Findings: Lower chest: No consolidation or pleural effusion. Small hiatal hernia. Abdomen and pelvis: The liver, spleen, adrenal glands, pancreas and gallbladder are unremarkable. No renal calculus. No hydronephrosis. Decompressed urinary bladder. Abnormal positioning of the IUD within the lower uterine segment. Normal appendix. No evidence of bowel obstruction. No pathologic lymphadenopathy. No ascites. Bones: No pathologic osseous lesions. Impression: 1. No acute abdominal or pelvic pathology. No obstructing urolithiasis. 2. Abnormal positioning of the IUD within the lower uterine segment, unchanged. Electronically signed by: Armaan Barron DO (02/18/2021 6:20 AM) [facility]
--- NOTE | 2021-02-18 06:24 | RAD ---
XR ABDOMEN COMP ACUTE History: Reason: Right sided abdomen pain, hematuria / Spl. Instructions: / History: Technique: Upright and supine views the abdomen. Comparison: None. Findings: No consolidation or pleural effusion. No pneumothorax. Normal heart size. No pneumoperitoneum. Mild s mall bowel gas. Air and stool throughout the colon. IUD projecting over the pelvis. Impression: 1. Nonobstructed bowel gas pattern. Electronically signed by: Armaan Barron DO (02/18/2021 6:21 AM) [facility]
[2021-02-18] MEDS ORDERED: IOHEXOL 240 MG/ML 50ML VIAL. ONE (06:44)
[2021-02-18] MEDS ORDERED: IOHEXOL 300 MG/ML 75 ML VIAL. IV ONE (06:45)
[2021-02-18] MEDS ORDERED: IOHEXOL 240 MG/ML 50ML VIAL. PO ONE (06:45)
[2021-02-18 08:14] LABS: INFLUENZA A PATIENT NEGATIVE (NEGATIVE); INFLUENZA B PATIENT NEGATIVE (NEGATIVE)
--- NOTE | 2021-02-18 08:31 | RAD ---
CT scan of the abdomen and pelvis with contrast 02/18/2021 CLINICAL HISTORY: Right lower quadrant abdominal pain. TECHNIQUE: After the oral administration contrast and the intravenous administration of 75 cc of Omni paque 300, contiguous, 5 mm axial sections were obtained through the abdomen and pelvis. One or more of the following individualized dose reduction techniques were utilized for this study: 1. Automated exposure control. 2. Adjustment of the mA and/or kV according to patient size. 3. Use of iterative reconstruction technique. FINDINGS: Comparison is made to unenhanced CT scan abdomen and pelvis performed earlier the same day. Images through the lung bases demonstrate minimal dependent subsegmental atelectasis bilaterally. The liver, spleen, pancreas, adrenal glands and kidneys are within normal limits. The abdominal aorta tapers normally. The gallbladder is slightly contracted. No free fluid or free ai r is within abdomen. There is no evidence of bowel obstruction. Air and stool are seen throughout the colon. The appendix is well-visualized and is within normal limits. Images through the pelvis demonstrate the urinary bladder distended with urine. An IUD is again seen which appears to be malpositioned with the cervical canal. Calcifications are seen within the pelvis consistent with phleboliths. No free fluid is seen. The osseous structures are unchanged. IMPRESSION: No acute abnormality is seen. Electronically signed by: Cristopher De Leon MD (02/18/2021 8:28 AM) [id number]
[2021-02-18 08:50] VITALS: BP 116/67
== END 2021-02-18 09:03 | disposition home or self-care (01) ==
LOC: ER 22:38
DX: U07.1 COVID-19 (principal); T83.32XA Displacement of intrauterine contraceptive device, initial encounter; F12.10 Cannabis abuse, uncomplicated; F15.10 Other stimulant abuse, uncomplicated; Z86.2 Personal history of diseases of the blood and blood-forming organs and certain disorders involving the immune mechanism; Z87.891 Personal history of nicotine dependence
CPT/HCPCS: 36415; 74022; 74176; 74177; 80053; 80307; 81001; 81025; 85025; 87086; 87428; 96361; 96374; 96375; 99285; J2405; J3490; J7120; Q9966; Q9967

== ENCOUNTER 2021-05-30 19:42 | Emergency (ER) | payer MEDICAID ==
[~2021-05-30] VITALS: Ht 162.6 cm; Wt 86.8 kg
[2021-05-30 19:55] VITALS: BP 149/84
[2021-05-30] MEDS ORDERED: HYDROcodone/APAP 7.5/325MG 1 TAB TABLET PO ONE (20:30)
[2021-05-30] MEDS ORDERED: AMOXICILLIN 250 MG CAPSULE PO ONE (20:30)
[2021-05-30] MEDS ORDERED: LIDOCAINE 2%/EPI 1:100,000 20 ML VIAL. IJ ONE (20:30)
[2021-05-30] MEDS ORDERED: BUPIVACAINE PF 0.75% 10 ML VIAL IJ ONE (20:30)
[2021-05-30] MEDS ORDERED: AMOX500C PO (20:48)
[2021-05-30] MEDS ORDERED: HYDR-2155 PO (20:48)
--- NOTE | 2021-05-30 20:49 | PHYS DOC ---
Past History Past Medical History: Ovarian Cyst, Other Additional Past Medical Histor: anemia (MARKY WINN APRN) Past Surgical History: Other Additional Past Surgical Histo: right shoulder (MARKY WINN APRN) Smoking: Greater than 1 pack/day Alcohol Use: None Drug Use: None (MARKY WINN APRN) General Adult EDM: Chief Complaint: DENTAL PROBLEM HPI: HPI: Patient is a 31-year-old female presents with right upper dental pain. Patient states pain started 2 days ago. Patient's face is swollen and tender to the touch. Denies fever. Patient states that she had an infected tooth that fell out a couple weeks ago and had pain off and on. Patient states that pain is gotten worse the last couple of days. Patient is still able to open up her mouth and able to drink. Denies taking anything at home for pain. (MARKY WINN APRN) Review of Systems: Review of Systems: ROS At least 10 ROS systems have been reviewed and are negative except as documented in the HPI. General: Negative except as outlined in HPI above. Skin: Negative except as outlined in HPI above. HEENT: Negative except as outlined in HPI above. Neck: Negative except as outlined in HPI above. Respiratory: Negative except as outlined in HPI above.. Cardiovascular: Negative except as outlined in HPI above. Abdomen: Negative except as outlined in HPI above. : Negative except as outlined in HPI above. Back/MSK: Negative except as outlined in HPI above. Neuro: Negative except as outlined in HPI above. Psych: Negative except as outlined in HPI above. (MARKY WINN APRN) Current Medications: Current Meds: Current Medications Medications (Trade) Dose Ordered Sig/Pedro Start Time Stop Time Status Last Admin Dose Admin Acetaminophen/ Hydrocodone Bitart (Lortab 7.5/325) 1 tab 1X ONCE 05/30/21 20:30 05/30/21 20:31 UNV Amoxicillin (Amoxil) 500 mg 1X ONCE 05/30/21 20:30 05/30/21 20:31 UNV Bupivacaine HCl (Sensorcaine Pf 0.75%) 10 ml 1X ONCE 05/30/21 20:30 05/30/21 20:31 UNV Lidocaine/ Epinephrine (Xylocaine 2%-Epi 1:100,000) 20 ml 1X ONCE 05/30/21 20:30 05/30/21 20:31 UNV (MARKY WINN APRN) Allergies: Allergies: Allergies Coded Allergies Type Severity Reaction Last Updated Verified No Known Drug Allergies 02/18/17 No (MARKY WINN APRN) Physical Exam: PE: Constitutional: Well developed, well nourished, no acute distress, non-toxic appearance. [] HENT: Normocephalic, atraumatic, bilateral external ears normal, oropharynx moist, right-sided, upperfacial swelling Eyes: PERRLA, EOMI, conjunctiva normal, no discharge. [] Neck: Normal range of motion, no tenderness, supple, no stridor. [] Cardiovascular:Heart rate regular rhythm, no murmur [] Lungs & Thorax: Bilateral breath sounds clear to auscultation [] Abdomen: Bowel sounds normal, soft, no tenderness, no masses, no pulsatile masses. [] Skin: Warm, dry, no erythema, no rash. [] Back: No tenderness, no CVA tenderness. [] Extremities: No tenderness, no cyanosis, no clubbing, ROM intact, no edema. [] Neurologic: Alert and oriented X 3, normal motor function, normal sensory function, no focal deficits noted. [] Psychologic: Affect normal, judgement normal, mood normal. [] (MARKY IWNN APRN) Current Patient Data: Vital Signs: Vital Signs Date Time Temp Pulse Resp B/P (MAP) Pulse Ox O2 Delivery O2 Flow Rate FiO2 05/30/21 19:55 97.2 89 18 149/84 (105) 100 Room Air (MARKY WINN APRN) EKG: EKG: [] (MARKY WINN APRN) Radiology/Procedures: Radiology/Procedures: [] (MARKY WINN APRN) Heart Score: C/O Chest Pain: No Risk Factors: Risk Factors: DM, Current or recent (<one month) smoker, HTN, HLP, family history of CAD, obesity. Risk Scores: Score 0 - 3: 2.5% MACE over next 6 weeks - Discharge Home Score 4 - 6: 20.3% MACE over next 6 weeks - Admit for Clinical Observation Score 7 - 10: 72.7% MACE over next 6 weeks - Early Invasive Strategies (MARKY WINN APRN) Course & Med Decision Making: Course & Med Decision Making Pertinent Labs and Imaging studies reviewed. (See chart for details) [] 31-year-old male presents with right upper dental pain and facial swelling. Patient is still able to swallow and open mouth. Patient reports pain is worse with opening mouth. Patient had an infected tooth that has fallen out and has had pain ever since. Pain is increased in the last 2 days. I performed a dental block to help with discomfort. Patient given hydrocodone for pain. Patient started on amoxicillin and given first dose while in the ER to help with infection. Patient sent home with pain medication and instructed to take ibuprofen as well. Patient reports that her mouth is numb and pain has decreased. Unable to see anything that needed to be drained or visible abscess. Advised patient to call dentist on Tuesday for further management. Discussed return precautions in length. Patient reports that she understands discharge instructions. (MARKY WINN APRN) Umesh Disclaimer: mUesh Disclaimer: This electronic medical record was generated, in whole or in part, using a voice recognition dictation system. (MARKY WINN APRN) Departure Departure: Impression: Primary Impression: Pain, dental Disposition: HOME / SELF CARE / HOMELESS Condition: STABLE Referrals: PCP,NO (PCP) Patient Instructions: Dental Pain, [id number] Additional Instructions: You are seen the emergency room for right, upper dental pain. You were given a dental block along with pain medication and an antibiotic. I sent an antibiotic and pain medication to your pharmacy. You need to call your dentist on Tuesday morning to make an appointment for further management. If not, this pain will continue. Return to the emergency room if you have worsening symptoms or concerns. EMERGENCY DEPARTMENT GENERAL DISCHARGE INSTRUCTIONS Thank you for coming to [facility] (ED) today and trusting us with you care. We trust that you had a positivie experience in our Emergency Department. If you wish to speak to the department management, you may call the director at [phone]. YOUR FOLLOW UP INSTRUCTIONS ARE FOLLOWS: 1. Do you have a private Doctor? If you do not have a private doctor, please ask for a resource list of physicians or clinics that may be able to assist you with follow up care. 2. The Emergency Physician has interpreted your x-rays. The X-Ray specialist will also review them. If there is a change in the findings, you will be notified in 48 hours when at all possible. 3. A lab test or culture has been done, your results will be reviewed and you w ill be notified if you need a change in treatment. ADDITIONAL INSTRUCTIONS AND INFORMATION: 1. Your care today has been supervised by a physician who is specially trained in emergency care. Many problems require more than one evaluation for a complete diagnosis and treatment. We recommend that you schedule your follow up appointment as recommended to ensure complete treatment of you illness or injury. If you are unable to obtain follow up care and continue to have a problem, or if your condition worsens, we recommend that you return to the ED. 2. We are not able to safely determine your condition over the phone nor are we able to give sound medical advice over the phone. For these safety reasons, if you call for medical advice we will ask you to come to the ED for further evaluation. 3. If you have any questions regarding these discharge instructions please call the ED at [phone]. SAFETY INFORMATION: In the interest of safety, wellness, and injury prevention; we encourage you to wear your sealbelt, if you smoke; quite smoking, and we encourage family to use a protective helmet for bicycling and other sporting events that present an increased risk for head injury. IF YOUR SYMPTOMS WORSEN OR NEW SYMPTOMS DEVELOP, OR YOU HAVE CONCERNS ABOUT YOUR CONDITION; OR IF YOUR CONDITION WORSENS WHILE YOU ARE WAITING FOR YOUR FOLLOW UP APPOINTMENT; EITHER CONTACT YOUR PRIMARY CARE DOCTOR, THE PHYSICIAN WHOSE NAME AND NUMBER YOU WERE GIVEN, OR RETURN TO THE ED IMMEDIATELY. Scripts Amoxicillin (AMOXICILLIN) 500 Mg Capsule 1 CAP PO BID for infection for 10 Days, #20 CAP Prov: MARKY WINN APRN 05/30/21 Hydrocodone Bit/Acetaminophen (HYDROCODONE-APAP 5-325 ) 1 Each Tablet 1-2 TAB PO PRN Q6HRS PRN for PAIN for 3 Days, #12 TAB 0 Refills Prov: MARKY WINN APRN 05/30/21 Attending Signature Attending Signature I have participated in the care of this patient and I have reviewed and agree with all pertinent clinical information above including history, exam, and recommendations. (EMILY CASTRO MD) Dragon Disclaimer This chart was dictated in whole or in part using Voice Recognition software in a busy, high-work load, and often noisy Emergency Department environment. It may contain unintended and wholly unrecognized errors or omissions. (EMILY CASTRO MD) MARKY WINN [employer] May 30, 2021 20:49 EMILY CASTRO MD Jun 01, 2021 20:29
[2021-05-30] MEDS ORDERED: KETOROLAC 60 MG/2 ML VIAL. IM ONE (21:30)
[2021-05-30] MEDS ORDERED: ORPHENADRINE CITRATE 60 MG/2 ML VIAL. IM ONE (21:30)
[2021-05-30] MEDS ORDERED: predniSONE 20 MG TABLET ONE (22:03)
[2021-05-30] MEDS ORDERED: predniSONE 20 MG TABLET PO ONE (22:30)
== END 2021-05-30 22:09 | disposition home or self-care (01) ==
LOC: ER 19:42
DX: K08.89 Other specified disorders of teeth and supporting structures (principal); R22.0 Localized swelling, mass and lump, head; F17.200 Nicotine dependence, unspecified, uncomplicated; Z86.2 Personal history of diseases of the blood and blood-forming organs and certain disorders involving the immune mechanism
CPT/HCPCS: 64400; 96372; 99284; J1885; J2360; J3490; J7512